=== PATIENT | male | born 1935 | race Caucasian/White ===

== ENCOUNTER 2019-03-23 06:18 | Emergency (ER) | payer MEDICARE ==
[2019-03-23] MEDS ORDERED: SODIUM CHLORIDE 0.9% 1000ML 1,000 ML IV ONE (07:16)
[2019-03-23 07:17] LABS: BASOPHILS % (AUTO) 0.4 % (0.0-5.0); HEMATOCRIT 40.4 % (42-54); MEAN CORPUSCULAR HEMOGLOBIN 29.9 pg (27.0-33.0); MEAN CORPUSCULAR HGB CONC 32.2 g/dL (32.0-36.0); MEAN CORPUSCULAR VOLUME 92.9 fL (79-99); MONOCYTES % (AUTO) 9.8 % (3.0-13.0); NEUTROPHILS % (AUTO) 82.4 % (40.0-77.0); PLATELET COUNT (AUTO) 229 K/uL (130-400); RED BLOOD CELL COUNT(AUTO) 4.35 MIL/uL (4.50-6.20); RED CELL DISTRIBUTION WIDTH 15.5 % (11.0-15.5); WHITE BLOOD COUNT (AUTO) 7.6 K/uL (4.8-10.8)
[2019-03-23 07:31] LABS: POTASSIUM 3.5 mmol/L (3.5-5.1)
[2019-03-23 07:36] LABS: ALBUMIN 3.7 g/dL (3.5-5.0); BILIRUBIN,TOTAL 0.6 mg/dL (0.2-1.0); TOTAL PROTEIN, SERUM 6.3 g/dL (6.0-8.3)
[2019-03-23 07:51] LABS: APPEARANCE,URINE TURBID (CLEAR); BILIRUBIN,URINE NEGATIVE (NEGATIVE); COLOR,URINE RED (YELLOW); GLUCOSE, URINE (UA) NEGATIVE (NEGATIVE); KETONES,URINE NEGATIVE (NEGATIVE); LEUKOCYTE ESTERASE ,URINE NEGATIVE (NEGATIVE); NITRATE,URINE NEGATIVE (NEGATIVE); OCCULT BLOOD,URINE LARGE (NEGATIVE); PH,URINE 6.5 (5.0-8.0); PROTEIN,URINE 100 mg/dL (NEGATIVE); UROBILINOGEN,URINE 0.2 mg/dL (0.2-1.0)
[2019-03-23 07:53] LABS: RBC,URINE TNTC /HPF (0-1)
[2019-03-23 07:54] LABS: BACTERIA,URINE Few /HPF (None Seen); SQUAMOUS EPITHELIAL CELL,UR Few /HPF (0-2)
[2019-03-23 08:00] LABS: INR 1.17 (0.85-1.15); PARTIAL THROMBOPLASTIN TIME 22.1 SEC (26.3-35.5); PROTHROMBIN TIME 12.2 SEC (9.6-11.6)
== END 2019-03-23 10:30 | disposition home or self-care (01) ==
LOC: EDH 06:18
DX: R33.9 Retention of urine, unspecified (principal); R31.0 Gross hematuria; I10 Essential (primary) hypertension; I48.91 Unspecified atrial fibrillation; E03.9 Hypothyroidism, unspecified; E78.00 Pure hypercholesterolemia, unspecified; Z90.49 Acquired absence of other specified parts of digestive tract
CPT/HCPCS: 36415; 51702; 74176; 80053; 81001; 83605; 83690; 85025; 85610; 85730; 87088; 99285; J7030